=== PATIENT | male | born 1970 | race Caucasian/White ===

== ENCOUNTER 2023-10-12 08:26 | Emergency (ER) | payer OTHER ==
[2023-10-12 10:16] LABS: #Lymphocytes 0.9 thou/uL (1.20-3.40); #Monocytes 0.5 thou/uL (0.11-0.59); #Neutrophils 7.1 thou/uL (1.40-6.50); %Basophils 0.5 % (0.0-1.0); %Eosinophils 0.1 % (0.0-10.0); %Lymphocytes 10.4 % (21.0-51.0); %Monocytes 5.2 % (0.0-10.0); %Neutrophils 83.9 % (42.0-75.0); Hematocrit 45.8 % (42.0-52.0); Hemoglobin 14.3 g/dL (14.0-18.0); Mean Corpuscular HGB CONC 31.3 g/dL (32.0-36.0); Mean Corpuscular Hemoglobin 28.4 pg (27.0-31.0); Mean Corpuscular Volume 90.7 fl (78.0-98.0); Mean Platelet Volume 8.6 fL (7.4-10.4); Platelet Count 208 10x3/uL (130-400); RBC Distribution Width 13.2 % (11.5-14.5); Red Blood Cell (RBC) Count 5.05 mill/uL (4.70-6.10); White Blood Cell (WBC) Count 8.5 10x3/uL (4.8-10.8)
[2023-10-12 10:28] LABS: ALT (SGPT) 55 U/L (8-55); AST (SGOT) 44 U/L (5-34); Albumin 4.4 g/dL (3.5-5.0); Alkaline Phosphatase 77 U/L (40-110); Anion Gap 16 mmol/L (10-20); BUN (Urea Nitrogen) 14 mg/dL (8.4-25.7); Bilirubin, Total 0.4 mg/dL (0.2-1.2); Calc. Creatinine Clearance 0 mL/min (70-130); Calcium 10.2 mg/dL (7.8-10.44); Carbon Dioxide 26 mmol/L (22-29); Chloride 100 mmol/L (98-107); Estimated GFR 68; Globulin 3.6 g/dL (2.4-3.5); Glucose 103 mg/dL (70-105); Potassium 4.5 mmol/L (3.5-5.1); Sodium 137 mmol/L (136-145)
[2023-10-12] MEDS ORDERED: Morphine 4 MG/ML VIAL ONE ×2 (10:31→12:40)
[2023-10-12] MEDS ORDERED: Ondansetron PF 4 MG/2 ML Vial ONE (10:31)
[2023-10-12 10:46] LABS: Bilirubin Negative (Negative); Blood, Urine Negative (Negative); Clarity Clear (Clear); Glucose, Urine (Dipstick) Negative (Negative); Ketone, Urine 40 mg/dL (Negative); Leukocyte Negative (Negative); Nitrite Negative (Negative); Protein, Urine (Dipstick) Negative (Neg-Trace); Specific Gravity, Urine 1.015 (1.005-1.030); Urobilinogen 0.2 mg/dL (Less than 2)
[2023-10-12 11:15] LABS: Bacteria/HPF None Seen HPF (None Seen); CAUTI Indications for Culture Pelvic or flank pain; RBC/HPF None Seen HPF (0-3); Squamous Epithelial 0-3 HPF (0-3); WBC/HPF None Seen HPF (0-3)
[2023-10-12 11:16] LABS: Urine Culture Reflex No No
[2023-10-12] MEDS ORDERED: Piperacillin/Tazobactam 3.375 GM VIAL ONE (11:44)
[2023-10-12] MEDS ORDERED: Sodium Chloride 0.9% 100 ML ONE (11:45)
== END 2023-10-12 13:16 | disposition short-term general hospital (02) ==
LOC: NAV ERS 08:26
DX: K51.00 Ulcerative (chronic) pancolitis without complications (principal)
CPT/HCPCS: 74177; 80053; 81001; 83605; 83690; 85025; 96365; 96375; 96376; J2270; J2405; J2543; J3490

== ENCOUNTER 2024-06-16 21:42 | Emergency (ER) | payer OTHER ==
[2024-06-16] MEDS ORDERED: Meclizine HCl 25 MG TAB ONE (22:26)
== END 2024-06-16 22:40 | disposition home or self-care (01) ==
LOC: NAV ERS 21:42
DX: R42 Dizziness and giddiness (principal); K21.9 Gastro-esophageal reflux disease without esophagitis; R11.2 Nausea with vomiting, unspecified
CPT/HCPCS: 99284